=== PATIENT | male | born 1975 | race Two or more races ===

== ENCOUNTER → 2020-12-07 | Outpatient (CLI) | payer OTHER ==
--- NOTE | 2020-12-07 17:28 | RAD ---
XR ELBOW_LEFT, XR HUMERUS_LT 2 VIEWS DATE: 12/07/2020 2:17 PM INDICATION: Reason: PAIN / Spl. Instructions: / History: COMPARISON: None. FINDINGS: Bones: There is no evidence of acute fracture or dislocation. Joints: The joint spaces are normal. There is no joint effusion. Miscellaneous: None. IMPRESSION: No evidence of acute fracture. Electronically signed by: Albino Aldrich MD (12/07/2020 5:26 PM) [id number]
--- NOTE | 2020-12-07 17:28 | RAD ---
XR LT WRIST 3VIEWS DATE: 12/07/2020 2:17 PM INDICATION: PAIN / Spl. Instructions: / History: COMPARISON: None. FINDINGS: Bones: There is no evidence of acute fracture or dislocation. Joints: The joint spaces are normal. Miscellaneous: None. IMPRESSION: No evidence of acute fracture. Electronically signed by: Albino Aldrich MD (12/07/2020 5:26 PM) [id number]
== END ==
LOC: DXRAD 12:35 → EEVIPCON 12:35
PROVIDERS: ATTEND Physician Assistant
DX: M79.602 Pain in left arm (principal)
CPT/HCPCS: 73060; 73070; 73110